=== PATIENT | female | born 1960 | race Caucasian/White ===

== ENCOUNTER → 2020-08-29 | Outpatient (CLI) | payer OTHER ==
[~2020-08-29] MED LIST: ADVIL200 M1 PO; ASPIRIN325 PO; CARBIDOPA-LEVO1 EAC8 PO; CELLCEPT500 MG PO; CIPRO500 M1 PO; DOXYCYCLINE HYC50 M4 PO; LEVO-T50 MCG PO; OXYCODONE HCL 55 MG PO; RASAGILINE MESYL1 MG PO; ROPINIROLE HCL6 MG PO; XARELTO10 MG PO
== END ==
LOC: M.MRI 11:19
PROVIDERS: ATTEND Orthopaedic Surgery
DX: S83.241A Other tear of medial meniscus, current injury, right knee, initial encounter (principal); M17.11 Unilateral primary osteoarthritis, right knee; R60.0 Localized edema; G89.29 Other chronic pain; X58.XXXA Exposure to other specified factors, initial encounter; Y93.89 Activity, other specified; Y92.89 Other specified places as the place of occurrence of the external cause; Y99.8 Other external cause status

== ENCOUNTER 2020-09-30 06:33 | Observation (INO) | payer OTHER ==
[~2020-09-30] VITALS: Ht 162.6 cm; Wt 90.7 kg
[~2020-09-30 06:33] MED LIST changes: -ASPIRIN325 PO; -OXYCODONE HCL 55 MG PO; -XARELTO10 MG PO
[2020-09-30 07:50] VITALS: BP 135/87
[2020-09-30 16:47] VITALS: BP 131/71
--- NOTE | 2020-09-30 16:54 | NUR ---
PT ADMITTED POST OP KNEE REPLACEMENT. FAMILY AT [facility]. PT ORIENTED TO ROOM. CALL LIGHT WITHIN REACH. FALL RISK PRECAUTIONS IN PLACE.
--- NOTE | 2020-09-30 17:33 | NUR ---
PT REMAINED ALERT AND ORIENTED. PT EDUCATED IN USING CALL LIGHT WHEN PAIN INCREASES TO STAY ON TOP OF PAIN. FALL RISK PRECAUTIONS IN PLACE. HOURLY ROUNDING COMPLETED. FAMILY AT BEDSIDE.
[2020-09-30 20:00] VITALS: BP 116/56
[2020-10-01] VITALS (8 sets, daily range): BP systolic 106–145; BP diastolic 49–67
--- NOTE | 2020-10-01 04:24 | NUR ---
ASSUMED PT CARE AT 1930. PT ALERT AND ORIENTED X4, POLITE AND COOPERATIVE WITH CARES. DRESSING TO RIGHT KNEE C/D/I. POLAR PACK IN USE. PT UP TO VOID X2 WITH GAIT BELT, WALKER AND GAITBELT. PAIN MEDICATION GIVEN PER MAY. PIV INFUSING WITHOUT DIFFICULTY. CALL LIGHT IN REACH. HOURLY ROUNDING IN PROGRESS, WILL CONTINUE TO MONITOR.
[2020-10-01 04:46] LABS: HEMATOCRIT 33.2 % (37.0-47.0); HEMOGLOBIN 11.2 gm/dL (12.0-15.0)
--- NOTE | 2020-10-01 15:57 | NUR ---
Pt is A&O. Resides at home with her . Independent. Pt has a walker, cane and commode at home. No hx of HH or SNF. Pt plans to dc to home today with [facility]. CM to fax referral and orders. CM contacted [facility] to check the cost of Pt's Xarelto, med required a prior auth, CANDY updated Dr Tyler's office, per , plan is home with aspirin regime and he will discuss with Pt. Pt's to provide dc transportation.
[2020-10-01] MEDS ORDERED: ASPIRIN325 PO (16:21)
--- NOTE | 2020-10-01 17:36 | NUR ---
PRN PAIN MEDICATIONS GIVEN PER PT REQUEST. POLAR PACK IN PLACE. PT REPORTS THAT HER PAIN IS NOT CONTROLLED. DISCHARGE ON HOLD. DR ACUÑA NOTIFIED OF PT PAIN NOT CONTROLLED. HE WANTS HER TO STAY OVERNIGHT. UP WITH WALKER AND GAIT BELT. FALL PRECAUTIONS IN PLACE. CALL LIGHT IN REACH.
--- NOTE | 2020-10-01 18:17 | NUR ---
HEMOVAC REMOVED. WBAT. AMBULATES TO [place].
[2020-10-02] MEDS ORDERED: OXYCODONE HCL 55 MG PO (01:52)
[2020-10-02] MEDS ORDERED: XARELTO10 MG PO (01:52)
[2020-10-02 03:47] LABS: HEMATOCRIT 33.7 % (37.0-47.0); HEMOGLOBIN 11.6 gm/dL (12.0-15.0)
--- NOTE | 2020-10-02 04:07 | NUR ---
PT A&O X 4. VSS ON RA. PAIN MANAGED WITH OXY IR. DRESSING TO RT KNEE C/D/I. POLAR PACK IN PLACE. UP TO THE BR WITH WALKER. NO OTHER CONCERNS AT THIS TIME. CALL LIGHT WITHIN REACH. WILL CONTINUE TO MONITOR.
[2020-10-02 08:00] VITALS: BP 136/62
--- NOTE | 2020-10-02 09:21 | NUR ---
Pt to dc home today, dc delayed yesterday d/t pain control issues. CM faxed HH orders yesterday
--- NOTE | 2020-10-02 15:29 | NUR ---
PT DISCHARGED WITH ALL BELONGINGS ACCOMPANIED BY . PT DENIED PAIN ON DISCHARGE. PT IS GETTING AROUND USING A WALKER. PT VSS AFEBRILE. SALINE LOCK REMOVED HUB INTACT. PT DISCHARGED HOME WITH GOOD UNDERSTANDING OF DISCHARGE INSTRUCTIONS.
--- NOTE | 2020-10-06 16:30 | OP ---
[address] [address] OPERATIVE REPORT Name: LYDIA DOLAN Room: [address] Benji Carrasco#: [id number] Admission: 09/30/20 Attend Phys: Rosa Stanton Discharge: 10/02/20 Date of : 56 Report #: [id number] THIS REPORT FOR: cc: Ingris Marie Linda J. DO Greiner, Robert F. II DO ~ DOC #: [id number] Neil Tyler II, DO DATE OF SURGERY: 09/30/2020 PREOPERATIVE DIAGNOSIS: Right knee osteoarthritis. POSTOPERATIVE DIAGNOSIS: Right knee osteoarthritis. PROCEDURE: Right total knee arthroplasty. SURGEON: Neil Tyler II, DO MAGNETIC DOCTOR: None. ANESTHESIA: General endotracheal. ESTIMATED BLOOD LOSS: 50 mL ANTIBIOTICS: Ancef preoperatively. DRAINS: Medium Hemovac. COMPLICATIONS: None. CONDITION OF THE PATIENT: Stable to recovery room. IMPLANTS: Listed in the operative record and progress note. BRIEF HISTORY: The patient was seen in the preoperative area. Preoperative H and P was performed. Site was marked, questions were answered. Risks and benefits were discussed with the patient in detail about surgery. The patient wished to proceed, assuming all risks. DESCRIPTION OF PROCEDURE: The patient was taken to the operative suite, placed supine on the operating table, given appropriate anesthesia. A well-padded tourniquet applied to the upper thigh, which was inflated to 300 mmHg after gravity exsanguination. The operative knee was sterilely prepped and draped. Surgery began by a midline incision and was carried down to subcutaneous tissues. A medial parapatellar arthrotomy was performed and carried down to bone. Patella was then everted and excess [place] [address] OPERATIVE REPORT Name: LYDIA DOLAN Room: [address] Benji Carrasco#: [id number] Admission: 09/30/20 Attend Phys: Rosa Stanton Discharge: 10/02/20 Date of : 56 Report #: [id number] the femur. Femoral cutting block was then applied, checked with a drop sherly for rotational alignment, pinned in appropriate position and appropriate cuts were made. A 4-in-1 cutting block was then applied, checked for rotational alignment, pinned in appropriate position and appropriate cuts were made. The tibia was then exposed. Excess meniscus was removed. Retractors were placed along the collateral ligaments. The tibial cutting block was then applied, pinned in appropriate position, checked with a drop sherly for rotational alignment and slope and appropriate cut was made. The tibial bone was removed. The tibial base plate was then applied, checked for rotational alignment with a drop sherly and pinned in appropriate position. Femur was then applied and the box cut was reamed. This was then trialed with appropriate spacer, which showed excellent fit and fill and excellent stability of the knee through all range of motion. The patella was reamed in appropriate fashion and sized to appropriate size. Three peg holes were drilled and it was then trialed and showed excellent flexion and extension, excellent tracking of the patellofemoral groove. These trials were removed. The tibia was punched in appropriate fashion. Bony ends were cleansed with Pulsavac irrigation and cement was mixed and applied to final implants. These were then malleted into position and held the knee in extension and compressed to allow cement to cure. After it cured, excess was removed with [place] and osteotome. The wound was then copiously irrigated and the final spacer was then malleted into position. The tourniquet was deflated. Hemostasis was obtained with electrocautery. Pain cocktail was injected. Medium Hemovac drain was then applied. Capsule was closed with #2 FiberWire and #1 Vicryl in a [id number] fashion. Skin was closed with 2-0 Vicryl, running 3-0 Monocryl. Dermabond and sterile dressing applied and Ruslan wrap and PolarCare applied. The patient transported to recovery in stable condition. Counts were correct throughout the procedure. Neil Tyler II, DO RFG/VIS <ELECTRONICALLY SIGNED> By: Neil Tyler II, DO 10/06/20 1630 [id number] Tyler II, DO /nt
== END 2020-10-02 15:09 | disposition home or self-care (01) ==
LOC: M.ORTHSURG 06:33 → M.TBA 07:18 → M.ORTHSURG 07:18 → M.TBA 10:30 → M.ORTHSURG 10:30
PROVIDERS: Orthopaedic Surgery; ADMIT Internal Medicine; ATTEND Internal Medicine
DX: M17.11 Unilateral primary osteoarthritis, right knee (principal); E03.9 Hypothyroidism, unspecified; G20 Parkinson's disease; Z79.899 Other long term (current) drug therapy